=== PATIENT | male | born 1950 | race Caucasian/White ===

== ENCOUNTER 2020-09-11 16:02 | Outpatient (CLI) | payer MEDICARE, SELFPAY | END 2020-09-11 16:03 | disposition home or self-care (01) | LOC: CHSLAB 16:06 | PROVIDERS: PCP Family Medicine; Visit Provider Specialist | DX: C44.729 Squamous cell carcinoma of skin of left lower limb, including hip (principal) | CPT/HCPCS: 88305 ==

== ENCOUNTER 2022-07-15 12:29 | Outpatient (CLI) | payer MEDICARE, SELFPAY ==
--- NOTE | ~2022-07-15 | XR_ITS ---
XR lumbar spine 2-3V 07/15/2022 13:10 Indication: Radiculopathy Procedure: 3 views lumbar spine Comparison: Comparison to multiple prior studies sequentially, with oldest reviewed study dated 03/2017. Findings: There is disc narrowing at L4-5 and L5-S1 which is unchanged. Prominent ventral osteophyte at this level. There is moderate multilevel facet hypertrophy. No evidence for spondylolisthesis. The re is atherosclerosis. No acute fracture or traumatic malalignment. Pedicles intact. There are cholec ystectomy clips. Sacral foramen are symmetric. Impression: 1: Moderate-severe lumbar spondylosis. Reviewed, dictated and finalized at location B. Impression: 1: Moderate-severe lumbar spondylosis.
--- NOTE | ~2022-07-15 | XR_ITS ---
XR_CERV2-3V_CR 07/15/2022 13:05 Indication: Radiculopathy. Neck pain. Procedure: 6 view cervical spine Comparison: 10/17/2016 Findings: there is deformity of the C6 spinous process which appears chronic. Vertebral body heights are maintained. No fracture or traumatic malalignment. No prevertebral soft tissue swelling. Odontoid process within normal limits. There is mild multilevel uncinate degenerative change. Lung apices are unremarkable. Impression: 1: Mild cervical spondylosis. Reviewed, dictated and finalized at location A. Impression: 1: Mild cervical spondylosis.
--- NOTE | ~2022-07-15 | XR_ITS ---
XR foot LT min 3V 07/15/2022 13:16 Indication: Chronic left foot pain Procedure: 4 views left foot Comparison: 09/09/2018 Findings: Lisfranc joint intact. No acute fracture or traumatic malalignment. There is mild osteoarth ritis of the first MTP and IP joints. Small degenerative calcaneal enthesophytes. 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 Reviewed, dictated and finalized at location B. 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
== END 2022-07-15 12:30 | disposition home or self-care (01) ==
LOC: CHSIMG 12:32
PROVIDERS: PCP Family Medicine; Visit Provider Family Medicine
DX: M79.672 Pain in left foot (principal); M54.17 Radiculopathy, lumbosacral region; M54.12 Radiculopathy, cervical region
CPT/HCPCS: 72040; 72100; 73630

== ENCOUNTER 2022-09-16 15:06 | Outpatient (CLI) | payer MEDICARE, SELFPAY | END 2022-09-16 15:07 | disposition home or self-care (01) | PROVIDERS: PCP Family Medicine; Visit Provider Specialist | DX: C44.329 Squamous cell carcinoma of skin of other parts of face (principal) | CPT/HCPCS: 88305 ==

== ENCOUNTER 2022-10-17 11:51 | Outpatient (CLI) | payer MEDICARE, SELFPAY ==
--- NOTE | ~2022-10-17 | XR_ITS ---
Clinical Indication: Shortness of breath PA and lateral views of the chest: Comparison: None Findings: The lungs are clear, without evidence of focal consolidation or pleural effusion. Cardiome diastinal silhouette is within normal limits. Bones and soft tissues are unremarkable. Impression: Normal chest. Reviewed, dictated and finalized at [facility]. HT RADIO OPERATOR Impression: Normal chest.
--- NOTE | 2022-10-17 11:58 | ECG_ITS ---
Measurements Intervals [place] Rate: 63 P: 64 MT: 148 QRS: 34 QRSD: 108 T: 49 QT: 398 QTc: 408 Interpretive Statements SINUS RHYTHM VENTRICULAR PREMATURE COMPLEX DELAYED PRECORDIAL R/S TRANSITION BASELINE WANDER- I, II, III, AVR, V1, V3-V6 BORDERLINE ECG NO PREVIOUS ECG AVAILABLE FOR COMPARISON Electronically Signed On 10-17-2022 12:50:12 DIRECTOR OF STUDENT AFFAIRS by Augie Rodrigues D.O.
== END 2022-10-17 11:52 | disposition home or self-care (01) ==
PROVIDERS: PCP Family Medicine; Visit Provider Family Medicine
DX: R06.02 Shortness of breath (principal); R00.2 Palpitations; R94.31 Abnormal electrocardiogram [ECG] [EKG]
CPT/HCPCS: 71046; 93005

== ENCOUNTER 2022-11-12 12:37 | Outpatient (CLI) | payer MEDICARE, SELFPAY ==
[2022-11-12 12:53] LABS: Basophils Absolute Auto 0.04 K/mm3 (0.00-0.10); Basophils Percent Auto 0.4 % (0.0-1.0); Eosinophils Absolute Auto 0.16 K/mm3 (0.02-0.50); Eosinophils Percent Auto 1.7 % (1.0-6.0); Hematocrit 44.7 % (37.0-46.0); Immature Granulocyte Absolute 0.03 K/mm3 (0.00-0.00); Immature Granulocyte Percent A 0.3 % (0.0-0.0); Mean Corpuscular HGB Conc 33.6 g/dL (32.0-36.0); Mean Corpuscular Volume 89.4 fL (78.0-102.0); Mean Platelet Volume 9.3 fl (8.7-11.0); Monocytes Absolute Auto 0.97 K/mm3 (0.10-0.90); Neutrophils Absolute Auto 5.7 K/mm3 (1.7-7.2); Neutrophils Percent Auto 58.6 % (50.0-70.0); Platelet Count Result 361 K/mm3 (150-420); Red Cell Distribution Width 13.4 % (11.6-14.4); White Blood Count 9.7 K/mm3 (4.8-10.8)
[2022-11-12 12:55] LABS: Add Urine Microscopic? NO; Appearance Urine Clear (Clear); Bilirubin Urine Negative (Negative); Blood Urine Negative (Negative); Color Urine Light Yellow (Yellow); Glucose Urine UA Negative (Negative); Ketones Urine Negative (Negative); Leukocyte Esterase Ur Negative (Negative); Nitrate Urine Negative (Negative); Protein Urine Negative (Negative); Specific Grav Ur >= 1.030 (1.010-1.020); Urobilinogen Urine 0.2 mg/dL (0.2-1.0); pH Urine 5.5 (5.0-8.0)
[2022-11-12 13:04] LABS: Creatinine Urine 136.64 mg/dL (40-278); MALB Creatinine Ratio 14.1 mg/g (0-30); Microalbumin Urine Random 19.3 mg/L
[2022-11-12 13:15] LABS: Hemoglobin A1C 7.5 % (<5.7)
[2022-11-12 13:52] LABS: Alanine Aminotransferase 34 U/L (16-63); Alkaline Phosphatase 50 U/L (46-116); Anion Gap 8 mmol/L (8-16); Aspartate Amino Transferase < 10 U/L (15-37); Bilirubin Direct 0.1 mg/dL (0-0.2); Bilirubin,Total 0.6 mg/dL (0.00-1.00); Blood Urea Nitrogen 19 mg/dL (7-18); Calcium 9.1 mg/dL (8.5-10.1); Carbon Dioxide 28 mmol/L (21-32); Chloride 100 mmol/L (98-108); Cholesterol 285 mg/dL (0-200); Estimated Glomerular Filt Rate > 60; Ferritin 74 ng/mL (26-388); Folic Acid 15.6 ng/mL (8.6->20); Glucose 156 mg/dL (70-99); HDL Direct 59 mg/dL (40-60); Iron 111 ug/dL (65-175); LDL Cholesterol Calculated 194 mg/dL (<130); Osmolality Calculated 287 mOsm/kg (285-295); Percent Iron Saturation 27 % (12-57); Potassium 4.6 mmol/L (3.5-5.1); Prostate Specific Antigen 1.9 ng/mL (< OR = 4.0); Sodium 136 mmol/L (136-145); Total Protein 7.1 g/dL (6.4-8.2); Triglycerides 161 mg/dL (0-150); Vitamin B12 671 pg/mL (193-986)
[2022-11-12 14:17] LABS: Thyroid Stimulating Hormone Reflex 2.21 u/IU/mL (0.36-3.74)
== END 2022-11-12 12:38 | disposition home or self-care (01) ==
LOC: CHSLAB 12:40
PROVIDERS: PCP Family Medicine; Visit Provider Internal Medicine
DX: R35.1 Nocturia (principal); G25.81 Restless legs syndrome; E78.2 Mixed hyperlipidemia; G62.9 Polyneuropathy, unspecified; E11.9 Type 2 diabetes mellitus without complications; R19.7 Diarrhea, unspecified; I10 Essential (primary) hypertension
CPT/HCPCS: 36415; 80053; 80061; 81003; 82043; 82248; 82607; 82728; 82746; 83036; 83540; 83550; 84153; 84443; 85025

== ENCOUNTER 2023-08-10 17:12 | Outpatient (CLI) | payer MEDICARE, SELFPAY ==
--- NOTE | ~2023-08-10 | XR_ITS ---
XR_CERV2-3V_CR DATE: 08/10/2023 17:39 INDICATION: Neck pain for 20 years TECHNIQUE: AP, open-mouth, lateral and swimmer views COMPARISON: 08/10/2023 thoracic spine 07/2022 cervical spine FINDINGS: C1 and C2 are normally aligned and the odontoid process is intact. No fracture or dislocati on or locked facet or prevertebral soft tissue swelling is detected. Mild loss of interspace height at C5-6. Mild uncovertebral joint spurring at C5-6. IMPRESSION: Mild cervical spondylosis Reviewed, dictated and finalized at Location A. Reviewed, dictated and finalized at location B. IMPRESSION: Mild cervical spondylosis
--- NOTE | ~2023-08-10 | XR_ITS ---
XR lumbar spine 2-3V DATE: 08/10/2023 17:39 INDICATION: Back pain for 20 years. No injury. TECHNIQUE: AP, lateral, coned lateral lumbosacral views COMPARISON: 07/15/2022 lumbar spine FINDINGS: There is degenerative change at the lumbar apophyseal joints with slight grade 1 anterolist hesis at L2-3 and L3-4. Mild degenerative disc disease at L1-2. Mild degenerative disc disease and anterior spurring at L3-4. Severe degenerative disc disease and prominent anterior spurring at L4-5 and L5-S1. No fracture or bone destruction is evident. Included lower thoracic and lumbar pedicles are intact. Sacroiliac joints appear normal. Status post cholecystectomy. IMPRESSION: Severe degenerative disc disease at L4-5 and L5-S1, mild degenerative disc disease at L1- 2 and L3-4 Degenerative changes apophyseal joints with grade 1 anterolisthesis at L2-3 and L3-4 Reviewed, dictated and finalized at location B. IMPRESSION: Severe degenerative disc disease at L4-5 and L5-S1, mild degenerati ve disc disease at L1-2 and L3-4 Degenerative changes apophyseal joints with grade 1 anterolisthesis at L2-3 and L3-4
--- NOTE | ~2023-08-10 | XR_ITS ---
XR thoracic spine 3V DATE: 08/10/2023 17:39 INDICATION: Back pain for 20 years. No injury. TECHNIQUE: AP, lateral, swimmer views COMPARISON: 09/17/2013 thoracic spine FINDINGS: Mild thoracic dextroscoliosis. Diffuse idiopathic skeletal hyperostosis of the thoracic spine. No fracture or dislocation or bone destruction. The thoracic pedicles are intact. No paraspinal soft tissue thickening. IMPRESSION: Diffuse idiopathic skeletal hyperostosis Mild dextroscoliosis Reviewed, dictated and finalized at location B.
== END 2023-08-10 17:13 | disposition home or self-care (01) ==
LOC: CHSIMG 17:15
PROVIDERS: PCP Family Medicine; Visit Provider Pain Medicine Interventional Pain Medicine
DX: M54.17 Radiculopathy, lumbosacral region (principal); M54.14 Radiculopathy, thoracic region; M54.12 Radiculopathy, cervical region; M51.36 Other intervertebral disc degeneration, lumbar region; M43.16 Spondylolisthesis, lumbar region; M48.14 Ankylosing hyperostosis [Forestier], thoracic region; M41.84 Other forms of scoliosis, thoracic region
CPT/HCPCS: 72040; 72072; 72100

== ENCOUNTER 2023-11-05 09:45 | Outpatient (CLI) | payer MEDICARE, SELFPAY ==
[2023-11-05 10:08] LABS: Hemoglobin A1C 6.7 % (<5.7)
[2023-11-05 10:11] LABS: Appearance Urine Clear (Clear); Bilirubin Urine Negative (Negative); Blood Urine Negative (Negative); Color Urine Yellow (Yellow); Glucose Urine UA Negative (Negative); Ketones Urine Negative (Negative); Leukocyte Esterase Ur Negative (Negative); Nitrate Urine Negative (Negative); Protein Urine Negative (Negative); Specific Grav Ur >= 1.030 (1.010-1.020); Urobilinogen Urine 0.2 mg/dL (0.2-1.0); pH Urine 5.5 (5.0-8.0)
[2023-11-05 11:07] LABS: Add Urine Microscopic? NO
[2023-11-05 11:29] LABS: Alanine Aminotransferase 23 U/L (16-63); Albumin Level 3.5 g/dL (3.4-5.0); Alkaline Phosphatase 47 U/L (46-116); Anion Gap 10 mmol/L (8-16); Aspartate Amino Transferase 13 U/L (15-37); Bilirubin Direct 0.1 mg/dL (0-0.2); Bilirubin,Total 0.6 mg/dL (0.00-1.00); Blood Urea Nitrogen 17 mg/dL (7-18); Calcium 8.9 mg/dL (8.5-10.1); Carbon Dioxide 27 mmol/L (21-32); Chloride 103 mmol/L (98-108); Cholesterol 297 mg/dL (0-200); Estimated Glomerular Filt Rate > 60; Ferritin 65 ng/mL (26-388); Glucose 147 mg/dL (70-99); HDL Direct 62 mg/dL (40-60); Iron 91 ug/dL (65-175); LDL Cholesterol Calculated 192 mg/dL (<130); Magnesium 1.9 mg/dL (1.8-2.4); Osmolality Calculated 294 mOsm/kg (285-295); Percent Iron Saturation 25 % (12-57); Potassium 4.7 mmol/L (3.5-5.1); Sodium 140 mmol/L (136-145); Thyroid Stimulating Hormone 1.98 uIU/mL (0.36-3.74); Total Protein 6.7 g/dL (6.4-8.2); Triglycerides 213 mg/dL (0-150)
== END 2023-11-05 09:46 | disposition home or self-care (01) ==
PROVIDERS: PCP Family Medicine; Visit Provider Family Medicine
DX: G25.81 Restless legs syndrome (principal); M62.838 Other muscle spasm; E78.2 Mixed hyperlipidemia; E11.9 Type 2 diabetes mellitus without complications
CPT/HCPCS: 36415; 80048; 80061; 80076; 81003; 82728; 83036; 83540; 83550; 83735; 84443

== ENCOUNTER 2024-01-29 14:59 | Outpatient (CLI) | payer MEDICARE, SELFPAY ==
--- NOTE | ~2024-01-29 | XR_ITS ---
EXAMINATION: XR foot RT 2V DATE: 01/29/2024 15:28 INDICATION: Chronic right foot pain. TECHNIQUE: 2 views of right foot were obtained. COMPARISON: None. FINDINGS: Bone alignment is normal. No fracture. There is mild osteoarthritis of some of the interpha langeal joints and midfoot joints. There are enthesophytes at the posterior and plantar aspects of ca lcaneal tuberosity. IMPRESSION: 1. Mild polyarticular osteoarthritis. Reviewed, dictated and finalized at location E.
--- NOTE | ~2024-01-29 | XR_ITS ---
XR_KNEE1-2VLT_CR 01/29/2024 15:28 Indication: Left knee pain Procedure: 2 views left knee Comparison: No prior studies for comparison. Findings: There is mild osteoarthritis of the patellofemoral joint. No fracture, subluxation or dislo cation. No significant joint effusion. No foreign bodies. Impression: 1: Mild osteoarthritis of the left knee. Reviewed, dictated and finalized at location B. Impression: 1: Mild osteoarthritis of the left knee.
--- NOTE | ~2024-01-29 | XR_ITS ---
EXAMINATION: XR foot LT 2V DATE: 01/29/2024 15:28 INDICATION: Chronic left foot pain. TECHNIQUE: 2 views of left foot were obtained. COMPARISON: None. FINDINGS: Bone alignment is normal. No fracture. There is mild osteoarthritis of some of the interpha langeal joints and midfoot joints. There are enthesophytes at the posterior and plantar aspects of ca lcaneal tuberosity. IMPRESSION: 1. Mild polyarticular osteoarthritis. Reviewed, dictated and finalized at location E.
--- NOTE | ~2024-01-29 | XR_ITS ---
EXAMINATION: XR_KNEE1-2VRT_CR DATE: 01/29/2024 15:28 INDICATION: Chronic right knee pain. TECHNIQUE: 2 views of right knee were obtained. COMPARISON: None. FINDINGS: Bone alignment is normal. No fracture. There is an exostosis at posterior lateral aspect of femoral metaphysis. There is mild osteoarthritis of patellofemoral compartment. No knee joint effusi on. IMPRESSION: 1. Mild right knee osteoarthritis. Reviewed, dictated and finalized at location E.
== END 2024-01-29 15:00 | disposition home or self-care (01) ==
LOC: CHSIMG 15:03
PROVIDERS: Visit Provider Pain Medicine Interventional Pain Medicine
DX: M25.569 Pain in unspecified knee (principal); M79.673 Pain in unspecified foot; M19.072 Primary osteoarthritis, left ankle and foot; M19.071 Primary osteoarthritis, right ankle and foot; M17.0 Bilateral primary osteoarthritis of knee
CPT/HCPCS: 73560; 73620

== ENCOUNTER 2024-04-12 12:25 | Outpatient (CLI) | payer MEDICARE, SELFPAY | END 2024-04-12 12:26 | disposition home or self-care (01) | PROVIDERS: PCP Family Medicine; Visit Provider Specialist | DX: L85.9 Epidermal thickening, unspecified (principal); L72.0 Epidermal cyst | CPT/HCPCS: 88305 ==

== ENCOUNTER 2024-09-15 14:22 | Outpatient (CLI) | payer MEDICARE, SELFPAY ==
--- NOTE | ~2024-09-15 | XR_ITS ---
3 VIEWS THORACIC SPINE Ordering provider: Quintin Mclean MD History: . RADICULOPATHY . Comparison: August 10 2023 FINDINGS: VERTEBRAL BODIES: Normal height and alignment. No visible fracture or subluxation. Degenerative medina es of the spine. DISK SPACES: Narrowing of all disc spaces in the mid thoracic area. SOFT TISSUES: Normal. IMPRESSION: No acute osseous abnormality of the thoracic spine. Multilevel degenerative disc disease. No significant change from previous examination. Reviewed, dictated and finalized at location A. ON OPERATOR IMPRESSION: No acute osseous abnormality of the thoracic spine. Multilevel degenerative disc disease. No significant change from previous exami [facility] [place].
--- NOTE | ~2024-09-15 | XR_ITS ---
3 VIEWS LUMBAR SPINE Ordering provider: Quintin Mclean MD History: . RADICULOPATHY . Comparison: None. FINDINGS: VERTEBRAL BODIES: No visible fracture or subluxation. Degenerative changes of the spine. DISK SPACES: Severe narrowing of the disc L4-L5 and L5-S1. Multilevel facet joint disease. SOFT TISSUES: Atherosclerotic changes of the aorta. Bilateral sacroiliitis. IMPRESSION: No acute osseous abnormality lumbar spine. Multilevel degenerative disc disease. Reviewed, dictated and finalized at location A. TIONS SALES CONSULTANT
--- NOTE | ~2024-09-15 | XR_ITS ---
XR_CERV2-3V_CR Ordering provider: Quintin Mclean MD History: . RADICULOPATHY . Comparison: None. FINDINGS: VERTEBRAL BODIES: Normal height and alignment. No visible fracture or subluxation. The dens is intact . DISK SPACES: Well maintained. Multilevel uncovertebral joint osteoarthritic changes. PARASPINOUS SOFT TISSUES: No prevertebral soft tissue swelling. IMPRESSION: No acute osseous abnormality cervical spine. Reviewed, dictated and finalized at location A. ACE FILLER
[2024-09-15 14:37] LABS: Add Urine Microscopic? NO; Appearance Urine Clear (Clear); Bilirubin Urine Negative (Negative); Blood Urine Negative (Negative); Color Urine Light Yellow (Yellow); Glucose Urine UA Negative (Negative); Ketones Urine Negative (Negative); Leukocyte Esterase Ur Negative (Negative); Nitrate Urine Negative (Negative); Protein Urine Negative (Negative); Specific Grav Ur >= 1.030 (1.010-1.020); Urobilinogen Urine 0.2 mg/dL (0.2-1.0)
[2024-09-15 14:51] LABS: Creatinine Urine 120.26 mg/dL (40-278); MALB Creatinine Ratio 10.8 mg/g (0-30); Microalbumin Urine Random < 13.0 mg/L
== END 2024-09-15 14:23 | disposition home or self-care (01) ==
LOC: CHSLAB 14:25
PROVIDERS: PCP Family Medicine; Visit Provider Pain Medicine Interventional Pain Medicine
DX: E11.9 Type 2 diabetes mellitus without complications (principal); M54.12 Radiculopathy, cervical region; M54.14 Radiculopathy, thoracic region; M54.17 Radiculopathy, lumbosacral region; M51.369 Other intervertebral disc degeneration, lumbar region without mention of lumbar back pain or lower extremity pain; M51.34 Other intervertebral disc degeneration, thoracic region
CPT/HCPCS: 72040; 72070; 72100; 81003; 82043

== ENCOUNTER 2024-10-07 11:58 | Outpatient (CLI) | payer MEDICARE, SELFPAY ==
[2024-10-07 12:20] LABS: Hemoglobin A1C 6.6 % (<5.7)
[2024-10-07 12:41] LABS: Alanine Aminotransferase 25 U/L (16-63); Alkaline Phosphatase 57 U/L (46-116); Anion Gap 9 mmol/L (4-12); Aspartate Amino Transferase 10 U/L (15-37); Bilirubin Direct 0.1 mg/dL (0-0.2); Bilirubin,Total 0.7 mg/dL (0.00-1.00); Blood Urea Nitrogen 21 mg/dL (7-18); Calcium 9.5 mg/dL (8.5-10.1); Carbon Dioxide 30 mmol/L (21-32); Chloride 100 mmol/L (98-108); Cholesterol 308 mg/dL (0-200); Estimated Glomerular Filt Rate > 60; Glucose 138 mg/dL (70-99); HDL Direct 59 mg/dL (40-60); LDL Cholesterol Calculated 211 mg/dL (<130); Osmolality Calculated 293 mOsm/kg (285-295); Potassium 4.8 mmol/L (3.5-5.1); Sodium 139 mmol/L (136-145); Triglycerides 188 mg/dL (0-150)
== END 2024-10-07 11:59 | disposition home or self-care (01) ==
LOC: CHSLAB 11:59
PROVIDERS: PCP Family Medicine; Visit Provider Family Medicine
DX: E11.9 Type 2 diabetes mellitus without complications (principal); E78.2 Mixed hyperlipidemia
CPT/HCPCS: 36415; 80048; 80061; 80076; 83036

== ENCOUNTER 2025-02-27 11:36 | Outpatient (CLI) | payer MEDICARE, SELFPAY ==
--- NOTE | ~2025-02-27 | XR_ITS ---
EXAM: XR hip BI wo pelvis DATE: 02/27/2025 12:05 HISTORY: PAIN IN UNSPECIFIED HIP,LT>RT . COMPARISON: None available. FINDINGS: Osteopenia. Lumbar degenerative disc disease. Mild bilateral superior hip joint space narr owing. Mild scattered pelvic and hip enthesopathy. No fracture or dislocation. No lytic or blastic le blake. IMPRESSION: Mild bilateral hip osteoarthritis. Reviewed, dictated and finalized at location K.
--- NOTE | ~2025-02-27 | XR_ITS ---
HISTORY: PAIN IN UNSPECIFIED KNEE,LT>RT,X WEEKS,NKI COMPARISON: 01/29/2024 TECHNIQUE: 3 views of the left knee were performed. FINDINGS: No acute or subacute fracture, erosion, lytic or sclerotic lesion. Medial and lateral tibiofemoral joint space narrowing is identified, unchanged from prior. No suprapatellar joint effusion is identified. The infrapatellar joint space is clear. Significant vascular calcifications are present. IMPRESSION: Degenerative disease, without acute fracture, as detailed above. Reviewed, dictated and finalized at location A.
--- NOTE | ~2025-02-27 | XR_ITS ---
EXAM: XR knee RT 3V DATE: 02/27/2025 12:04 HISTORY: PAIN IN UNSPECIFIED KNEE,LT>RT,NKI . COMPARISON: 07/21/2006. FINDINGS: Normal mineralization. No fracture or dislocation. Stable osteochondroma projecting off th e posterolateral cortex of the distal femur. Mild medial joint space narrowing. Mild tricompartmental osteophytosis. Trace joint effusion. No erosion or periosteal change. Scattered vascular calcificati ons. IMPRESSION: Mild tricompartmental right knee osteoarthritis. Stable distal femoral osteochondroma. Reviewed, dictated and finalized at location K. IMPRESSION: Mild tricompartmental right knee osteoarthritis. Stable distal femo ral osteochondroma.
--- OUTSIDE RECORDS SUMMARY | 2025-02-27 12:08 | XMS_ITS | Clinical Summary ---
Author Organization [facility] Address [address] [place] [id number] Care Team Providers Care Assistant Warehouse Manager Name Role Phone Tarik Lopez MD Primary Care Provider [phone] Encounters Date Type Department Care Team Description 01/25/2025 3:06 PM CDT - 01/25/2025 11:59 PM CDT Hospital Encounter [facility] [place] [place] [address] Tarik Lopez MD Discharge Disposition: Home or Self Care (Routine Discharge) 01/25/2025 Travel from Last 3 Months Social History Tobacco Use Types Packs/Day Years Used Date Smoking Tobacco: Never Assessed Sex and Gender Information Value Date Recorded Sex Assigned at Male 01/05/2025 2:51 PM CDT Legal Sex Male 9:26 AM CDT Gender Identity Not on file Sexual Orientation Not on file Plan of Treatment Health Maintenance Due Date Last Done Comments Colorectal Cancer Screening Colonoscopy (10 Years) 1950 Hepatitis C 1968 DTaP, Tdap and Td Vaccines (1 - Tdap) 1969 Pneumococcal Vaccine: 50+ Years (1 of 1 - PCV) 2000 Zoster Vaccines (1 of 2) 2000 COVID-19 Vaccine (5 - season) 2024 06/22/2021, 05/25/2021, 12/21/2020, Additional history exists RSV Immunization or 60+ Years (1 - 1-dose 75+ series) 2025 Meningococcal B Vaccine Aged Out No l onger eligible based on patient's age to complete this topic Meningococcal Vaccine Aged Out No carlos carlos eligible based on patient's age to complete this topic RSV Immunizations Under 20 Months Aged Out No longer eligible based on patient's age to complete this topic Procedures Procedure Name Priority Date/Time Associated Diagnosis Comments CT HEART SCREEN CALCIUM SCORE PROMO Routine 01/25/2025 3:27 PM CDT Mixed hyperlipidemia from Last 3 Months Results * CT HEART SCREEN CALCIUM SCORE PROMO (01/25/2025 3:27 PM CDT) Anatomical Region Laterality Modality Chest Computed Tomogra phy 01/25/2025 3:45 PM CDT Impressions 01/25/2025 3:46 PM CDT =====IMPRESSION:===== Total Score: 262 Moderate plaque, moderately high risk, moderate likelihood of significant stenosis (>50%). Ordered By: TARIK LOPEZ Interpreted By: Paulo Hamilton MD, 01/25/2025 3:45 PM Narrative 01/25/2025 3:46 PM CDT [address] [address] EXAMINATION: Multislice Helical CT Coronary Calcium Scoring REASON FOR EXAM: Screening for heart disease COMPARISON: None TECHNIQUE: Multislice helical CT images of the proximal coronary arteries with a computer generated calcification score. A dose lowering technique was used for this procedure, which may include, but is not limited to, dose reduction technique, automated exposure control, iterative reconstruction, ALARA (As Low As Reasonably Achievable), or Image Gently techniques. Results: Left main: 182 LAD: 28.2 Circumflex: 0 Right coronary: 51.6 Total Score: 262 Comments: There is no mediastinal adenopathy, and there are no pulmonary nodules in the visualized portions of the chest. Calcium score guidelines: Total Score* Calcium Plaque [place] *Risk *Probability of significant CAD 0 No Plaque Very Low Very unlikely 1-10 Minimal Plaque Low Unlikely 11-100 Mild Plaque Moderate Low likelihood of significant stenosis <50% 101-400 Moderate Plaque Moderately High Moderate likelihood of significant stenosis (>50%) Over 400 Extensive Plaque High High likelihood of significant stenosis (>50%) The amount of coronary artery calcification correlates with the severity of coronary atherosclerosis and the probability of future significant event. Calcification is not site specific for stenosis and does not identify non-calcified atherosclerotic plaque, but rather indicates the extent of atherosclerosis in the coronary arteries overall. The score may be used as an indicator for risk factor modification or additional cardiac testing. Significant change in calcium score over time may be indicative of subsequent disease development or useful as a benchmark to assess preventative programs. Procedure Note Paulo Hamilton MD - 01/25/[address] [address] EXAMINATION: Multislice Helical CT Coronary Calcium Scoring REASON FOR EXAM: Screening for heart disease COMPARISON: None TECHNIQUE: Multislice helical CT images of the proximal coronary arterieswith a computer generated calcification score. A dose lowering techniquewas used for this procedure, which may include, but is not limited to,dose reduction technique, automated exposure control, iterativereconstruction, ALARA (As Low As Reasonably Achievable), or Image Gentlytechniques. Results: Left main: 182 LAD: 28.2 Circumflex: 0 Right coronary: 51.6 Total Score: 262 Comments: There is no mediastinal adenopathy, and there are no pulmonarynodules in the visualized portions of the chest. Calcium score guidelines: Total Score* Calcium Plaque [place] *Risk *Probability ofsignificant CAD 0 No Plaque Very LowVery unlikely 1-10 Minimal Plaque LowUnlikely 11-100 Mild Plaque ModerateLow likelihood of significant stenosis <50% 101-400 Moderate Plaque Moderately HighModerate likelihood of significant stenosis (>50%) Over 400 Extensive Plaque HighHigh likelihood of significant stenosis (>50%) The amount of coronary artery calcification correlates with the severityof coronary atherosclerosis and the probability of future significantevent. Calcification is not site specific for stenosis and does notidentify non-calcified atherosclerotic plaque, but rather indicates theextent of atherosclerosis in the coronary arteries overall. The score may be used as an indicator for risk factor modification oradditional cardiac testing. Significant change in calcium score over timemay be indicative of subsequent disease development or useful as abenchmark to assess preventative programs. =====IMPRESSION:===== Total Score: 262 Moderate plaque, moderately high risk, moderatelikelihood of significant stenosis (>50%). Ordered By: TARIK LOPEZ Interpreted By: Paulo Hamilton MD, 01/25/2025 3:45 PM us Tarik Lopez MD CT Final Resul t from Last 3 Months Insurance [employer] Care Teams Assistant Warehouse Manager Relationship Specialty Start Date End Date Tarik Lopez MD [address] [place] [address] [address] [place] [address] PCP - General FAMILY PRACTICE 01/05/25
== END 2025-02-27 11:37 | disposition home or self-care (01) ==
LOC: CHSIMG 11:39
PROVIDERS: PCP Family Medicine; Visit Provider Pain Medicine Interventional Pain Medicine
DX: M25.559 Pain in unspecified hip (principal); M25.561 Pain in right knee; M25.562 Pain in left knee
CPT/HCPCS: 73521; 73562

== ENCOUNTER 2025-03-14 11:27 | Outpatient (CLI) | payer MEDICARE, SELFPAY ==
--- NOTE | 2025-03-14 | S_PTH ---
PATIENT: Alpesh Nguyen LOC: [facility] U#:[id number] AGE/SX: 74/M ROOM: RE03/14/[address]: Neal Knapp M.D. : 1950 BED: DIS: 03/14/2025 SPEC #: [id number] RECD: 03/14/25 14:20 STATUS: ALYSA REQ #: [id number] SMILEY: 03/14/25 00:[address]: Neal Knapp DEPT: [facility] Surgical RECD BY: Melva Jackson MLT, ([facility]) ENTERED: 03/14/25 14:21 SP TYPE: Surgical OTHR DR: Teofilo Lopez MD Tissues: A - Skin Bx Procedures: Hematoxylin and Eosin Stain Gross and Microscopic Level 4
== END 2025-03-14 11:28 | disposition home or self-care (01) ==
LOC: CHSLAB 11:29
PROVIDERS: PCP Family Medicine; Visit Provider Specialist
DX: D48.5 Neoplasm of uncertain behavior of skin (principal)
CPT/HCPCS: 88305

== ENCOUNTER 2025-04-19 01:52 | Day surgery (SDC) | payer MEDICARE, SELFPAY ==
[2025-03-24 14:45] VITALS: BMI 30.5
--- OUTSIDE RECORDS SUMMARY | 2025-04-19 01:56 | XMS_ITS | Clinical Summary ---
Author Organization [facility] Address [address] [place] [id number] Care Team Providers Care Sharepoint Analyst Name Role Phone Tarik Lopez MD Primary Care Provider [phone] Encounters Date Type Department Care Team Description 01/25/2025 3:06 PM CDT - 01/25/2025 11:59 PM CDT Hospital Encounter [facility] [place] [address] Tarik Lopez MD Discharge Disposition: Home or [...] 3:45 PM Narrative 01/25/2025 3:46 PM CDT [address] [address] EXAMINATION: Multislice Helical CT Coronary Calcium Scoring [...] Calcium score guidelines: Total Score* Calcium Plaque [place] *Risk *Probability of significant CAD 0 No [...] Procedure Note Paulo Hamilton MD - 01/25/[address] [address] EXAMINATION: Multislice Helical CT Coronary Calcium Scoring [...] Calcium score guidelines: Total Score* Calcium Plaque [place] *Risk *Probability ofsignificant CAD 0 No Plaque [...] t from Last 3 [place] [address] Care Teams Sharepoint Analyst Relationship Specialty Start Date End Date Tarik Lopez MD [address] [place] [address] [address] [place] [address] PCP - General FAMILY PRACTICE 01/05/25
[2025-04-19 09:16] VITALS: BP 155/81; PULSE 71; RESP 14; TEMP 36.2; O2SAT 96; BMI 30.1
[2025-04-19] MEDS: LACTATED RINGERS 1,000 ML 150 ML IV CONT (09:32)
--- NOTE | 2025-04-19 10:07 | P.PNAN_ITS ---
Anes - Initial Pre Proc Eval Procedure: Operation Date: 04/19/25 10:30 Proposed Procedures p Screening Colonoscopy - Josias Daniels MD Date/Time: 04/19/25 10:07 Surgeon: Josias Daniels MD Pre Op Diagnosis: screening malignant neoplasm of colon Patient Data Age: 74 Gender: M Height: 1.85 m Weight: 103.5 kg Last Vital Signs Temp 97.2 F L 04/19/25 09:16 Pulse 71 04/19/25 09:16 Resp 14 04/19/25 09:16 BP 155/81 H 04/19/25 09:16 Pulse Ox 96 04/19/25 09:16 O2 Del Method Room Air 04/19/25 09:16 Allergies Allergy/AdvReac Type Severity Reaction Status Date / Time levofloxacin Allergy Unknown Pain Verified 04/19/25 09:21 Home Medications ?Medication ?Instructions ?Recorded ?Confirmed ?Type mometasone 0.1 % topical cream 1 applic topical DAILY 2 weeks #30 11/29/20 04/19/25 Rx grams lancets 33 gauge (OneTouch [employer] #100 ea 12/08/22 05/26/24 Rx Lancets) hydrocodone 7.5 mg-acetaminophen 1 tablet PO Q6H PRN pain 04/29/23 03/24/25 History 325 mg tablet magnesium oxide 500 mg capsule 500 mg PO BID 04/29/23 04/19/25 History insulin aspar prot-insulin aspart 6 unit (0.06 mL) subcut BID #15 mL 11/10/23 04/19/25 Rx 100 unit/mL (70-30) subcutaneous pen (Novolog Mix 70-30FlexPen U-100) blood sugar diagnostic ([employer] #400 ea 12/14/23 05/26/24 Rx Verio test strips) finasteride 5 mg tablet 5 mg PO DAILY 05/26/24 04/19/25 History cyclobenzaprine 10 mg tablet 10 mg PO TID spasm 01/04/25 04/19/25 History irbesartan 150 mg tablet 150 mg PO DAILY #90 tabs 01/04/25 04/19/25 Rx pregabalin 75 mg capsule 75 mg PO TID #90 caps 01/04/25 04/19/25 Rx ropinirole 1 mg tablet 1 mg PO DAILY #90 tabs 01/04/25 04/19/25 Rx zolpidem 10 mg tablet 10 mg PO .Qhs PRN insomnia #30 tabs 01/04/25 03/24/25 Rx metformin 500 mg tablet,extended 2,000 mg (4 x 500 mg) PO QPM #360 03/14/25 04/19/25 Rx release 24 hr tabs Laboratory Tests 04/19/25 09:28 POC Capillary Glucose 179 H mg/dl (65-105) Patient hx anesthesia problems: none Family hx anesthesia problems: none Results Review: All pre-operative results and documents have been reviewed as part of the pre- operative evaluation. 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 BMI 33.0-33.9,adult BPH without obstruction/lower urinary tract symptoms BMI 31.0-31.9,adult Encounter for prostate cancer screening PSA normal at 1.98 on 11/05/2023. Screening for diabetic retinopathy no diabetic retinopathy on 09/29/2023. Patient reports no retinopathy September,. Cataracts. BMI 32.0-32.9,adult Hypersomnia Muscle spasms of lower extremity magnesium normal at 1.9 on 11/05/2023. Obesity (BMI 30-39.9) Controlled diabetes mellitus Fasting glucose 156 with hemoglobin A1c 7.5 and urine microalbumin ratio of 14.1 on 11/12/2022. Fasting glucose 147 with hemoglobin A1c 6.7 with microalbumin ratio of 14.1 on 11/05/2023. Glucose 138, hemoglobin A1c 6.6, urine microalbumin ratio of 10.8 with GFR 60 on 10/07/2024. Palpitation EKG on 10/17/2021 with frequent PVCs and wondering baseline. Fourteen day event monitor 11/25/2022 with frequent PVCs and APCs with a 4 beat run of ventricular tachycardia. Shortness of breath Chest x-ray normal on 10/17/2021. Echocardiogram 12/19/2022 with mild diastolic dysfunction with ejection fraction of 62% with mild mitral valve regurgitation, pulmonary valve regurgitation, and mild pulmonary hypertension. Obesity (BMI 30.0-34.9) Controlled diabetes mellitus without complication, without long-term current use of insulin Diarrhea BMI 34.0-34.9,adult Chronic depression Seborrheic dermatitis Erectile disorder due to medical condition in male Actinic keratosis Basal cell carcinoma Polyp of colon Hearing loss Encounter for hepatitis C screening test for low risk patient (03/26/21) Hepatitis-C screening negative on 03/26/2021 Infected pilonidal cyst Acute non-recurrent maxillary sinusitis Peripheral neuropathy care home (current) use of insulin Lumbago with sciatica, right side Type 2 diabetes mellitus without complication, with long-term current use of insulin Family History Family History Mother Dementia Father Dementia Social History Social History Social History: former smoker Smoking packs per day: 2 Smoking cigarettes per day: 40.0 Years smoked: 45 Smoking pack-years: 90.00 Smoking status: Former smoker Alcohol intake: former Substance use: never Substance use type: does not use Current Housing: Decline to Answer Concerned About Future Housing: Decline to Answer Difficulty Paying Gas/Electric Bills: Decline to Answer Difficulty Paying for Meds: Decline to Answer Currently Unemployed: Decline to Answer Education: Decline to Answer Difficulty w/ Childcare or Family Care: Decline to Answer Anes - Eval Final PreProcedure Day of Procedure 04/19/25 10:07 Patient weight: obese Lungs: normal air movement Airway: Mallampati scale class II and special considerations (Upper edentulous. ) Neurological: alert and oriented Last oral intake: >/= 8 hours ASA classification: III Emergent: no Anesthetic plan: proceed Anesthesia type and monitoring: general GIVS and standard monitoring Results Review: All pre-operative results and documents have been reviewed as part of the pre- operative evaluation. HTN, DMJ fsbs 179, BMI 30,, ex smoker, quit approx 2019. Informed Consent: The patient's anesthetic plan and its attendant risks and benefits were discussed with the patient/family/POA. Questions were solicited and answers provided to the satisfaction of the patient/family/POA.
--- NOTE | 2025-04-19 10:28 | PM.IMHP ---
H&P: HPI History of Present Illness Date/Time: 04/19/25 10:28 Chief Complaint: Screening colonoscopy Narrative: This is the patient's 2nd colonoscopy. There are no GI symptoms and there is no family history of colorectal cancer. 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 BMI 33.0-33.9,adult BPH without obstruction/lower urinary tract symptoms BMI 31.0-31.9,adult Encounter for prostate cancer screening PSA normal at 1.98 on 11/05/2023. Screening for diabetic retinopathy no diabetic retinopathy on 09/29/2023. Patient reports no retinopathy September,. Cataracts. BMI 32.0-32.9,adult Hypersomnia Muscle spasms of lower extremity magnesium normal at 1.9 on 11/05/2023. Obesity (BMI 30-39.9) Controlled diabetes mellitus Fasting glucose 156 with hemoglobin A1c 7.5 and urine microalbumin ratio of 14.1 on 11/12/2022. Fasting glucose 147 with hemoglobin A1c 6.7 with microalbumin ratio of 14.1 on 11/05/2023. Glucose 138, hemoglobin A1c 6.6, urine microalbumin ratio of 10.8 with GFR 60 on 10/07/2024. Palpitation EKG on 10/17/2021 with frequent PVCs and wondering baseline. Fourteen day event monitor 11/25/2022 with frequent PVCs and APCs with a 4 beat run of ventricular tachycardia. Shortness of breath Chest x-ray normal on 10/17/2021. Echocardiogram 12/19/2022 with mild diastolic dysfunction with ejection fraction of 62% with mild mitral valve regurgitation, pulmonary valve regurgitation, and mild pulmonary hypertension. Obesity (BMI 30.0-34.9) Controlled diabetes mellitus without complication, without long-term current use of insulin Diarrhea BMI 34.0-34.9,adult Chronic depression Seborrheic dermatitis Erectile disorder due to medical condition in male Actinic keratosis Basal cell carcinoma Polyp of colon Hearing loss Encounter for hepatitis C screening test for low risk patient (03/26/21) Hepatitis-C screening negative on 03/26/2021 Infected pilonidal cyst Acute non-recurrent maxillary sinusitis Peripheral neuropathy care home (current) use of insulin Lumbago with sciatica, right side Type 2 diabetes mellitus without complication, with long-term current use of insulin Family History Family History Mother Dementia Father Dementia Social History Social History Social History: former smoker Smoking packs per day: 2 Smoking cigarettes per day: 40.0 Years smoked: 45 Smoking pack-years: 90.00 Smoking status: Former smoker Alcohol intake: former Substance use: never Substance use type: does not use Current Housing: Decline to Answer Concerned About Future Housing: Decline to Answer Difficulty Paying Gas/Electric Bills: Decline to Answer Difficulty Paying for Meds: Decline to Answer Currently Unemployed: Decline to Answer Education: Decline to Answer Difficulty w/ Childcare or Family Care: Decline to Answer Meds Home Medications and Allergies Home Medications ?Medication ?Instructions ?Recorded ?Confirmed ?Type mometasone 0.1 % topical cream 1 applic topical DAILY 2 weeks #30 11/29/20 04/19/25 Rx grams lancets 33 gauge ([employer] [facility] #100 ea 12/08/22 05/26/24 Rx Lancets) hydrocodone 7.5 mg-acetaminophen 1 tablet PO Q6H PRN pain 04/29/23 03/24/25 History 325 mg tablet magnesium oxide 500 mg capsule 500 mg PO BID 04/29/23 04/19/25 History insulin aspar prot-insulin aspart 6 unit (0.06 mL) subcut BID #15 mL 11/10/23 04/19/25 Rx 100 unit/mL (70-30) subcutaneous pen (Novolog Mix 70-30FlexPen U-100) blood sugar diagnostic ([employer] #400 ea 12/14/23 05/26/24 Rx Verio test strips) finasteride 5 mg tablet 5 mg PO DAILY 08/15/24 07/09/25 History cyclobenzaprine 10 mg tablet 10 mg PO TID spasm 01/04/25 04/19/25 History irbesartan 150 mg tablet 150 mg PO DAILY #90 tabs 01/04/25 04/19/25 Rx pregabalin 75 mg capsule 75 mg PO TID #90 caps 01/04/25 04/19/25 Rx ropinirole 1 mg tablet 1 mg PO DAILY #90 tabs 01/04/25 04/19/25 Rx zolpidem 10 mg tablet 10 mg PO .Qhs PRN insomnia #30 tabs 01/04/25 03/24/25 Rx metformin 500 mg tablet,extended 2,000 mg (4 x 500 mg) PO QPM #360 03/14/25 04/19/25 Rx release 24 hr tabs Allergies Allergy/AdvReac Type Severity Reaction Status Date / Time levofloxacin Allergy Unknown Pain Verified 04/19/25 09:21 Vital Signs Vital Signs - 24 hr 04/19/25 09:16 Temperature 97.2 F L Pulse Rate 71 Respiratory Rate 14 Blood Pressure 155/81 H Pulse Oximetry 96 Oxygen Delivery Room Air Exam Const: General: cooperative and healthy appearing Resp: Effort & Inspection: normal respiratory effort and able to speak in complete sentences Auscultation: clear to auscultation bilaterally Cardio: Rate: regular rate Rhythm: regular rhythm GI: Inspection: normal to inspection GI Palp: No No hepatosplenomegaly present Auscultation: normal bowel sounds Rectal Exam: deferred Skin: General skin exam: normal color Psych: Appearance: grossly normal Mental Status: mental status grossly normal Assessment and Plan Assessment and plan (1) Encounter for screening colonoscopy: Code(s): Z12.11 - Encounter for screening for malignant neoplasm of colon Status: Acute Assessment and Plan: The patient is deemed a good candidate for the procedure. Consent signed. Will proceed.
--- NOTE | 2025-04-19 11:03 | S_PTH ---
PATIENT: Alpesh Nguyen LOC: INO #:[id number] AGE/SX: 74/M ROOM: RE04/19/[address]: Josias Daniels MD : 1950 BED: DIS: 04/19/2025 SPEC #: [id number] RECD: 04/19/25 13:20 STATUS: ALYSA REQ #: [id number] SMILEY: 04/19/25 11:[address]: Josias Daniels DEPT: [facility] Surgical RECD BY: Kait Atkins ENTERED: 04/19/25 13:22 SP TYPE: Surgical OTHR DR: Teofilo Lopez MD Tissues: A - Colon Polypectomy B - Colon Polypectomy Procedures: Hematoxylin and Eosin Stain Gross and Microscopic Level 4
[2025-04-19 11:07] VITALS: BP 129/70; PULSE 58; RESP 20; O2SAT 97
[2025-04-19 11:17] VITALS: BP 134/67; PULSE 59; RESP 20; O2SAT 99
[2025-04-19 11:27] VITALS: BP 150/72; PULSE 56; RESP 20; O2SAT 100
== END 2025-04-19 11:45 | disposition home or self-care (01) ==
PROVIDERS: PCP Family Medicine; Referring Provider Family Medicine; Visit Provider Internal Medicine Gastroenterology
PROC: 0DJD8ZZ Inspection of Lower Intestinal Tract, Via Natural or Artificial Opening Endoscopic (ICD-10-PCS; CPT 45378; principal; 2025-04-19 10:30)
DX: Z12.11 Encounter for screening for malignant neoplasm of colon (principal); D12.3 Benign neoplasm of transverse colon; K63.5 Polyp of colon; K64.8 Other hemorrhoids; I10 Essential (primary) hypertension; I25.10 Atherosclerotic heart disease of native coronary artery without angina pectoris; N40.0 Benign prostatic hyperplasia without lower urinary tract symptoms; E11.9 Type 2 diabetes mellitus without complications; F32.A Depression, unspecified; N52.9 Male erectile dysfunction, unspecified; G47.10 Hypersomnia, unspecified; M62.838 Other muscle spasm; R00.2 Palpitations; L21.9 Seborrheic dermatitis, unspecified; L57.0 Actinic keratosis; G62.9 Polyneuropathy, unspecified; Z79.4 Long term (current) use of insulin; Z79.891 Long term (current) use of opiate analgesic; Z79.84 Long term (current) use of oral hypoglycemic drugs; Z87.891 Personal history of nicotine dependence; Z85.828 Personal history of other malignant neoplasm of skin
CPT/HCPCS: 45385; 82948; 88305; J2003; J2704; J7120